=== PATIENT | female | born 1935 ===

== ENCOUNTER 2022-01-07 18:21 | Emergency (ER) | payer SELFPAY ==
[2022-01-07] MEDS ORDERED: Cephalexin 500 MG Cap PO ONE (18:22)
[2022-01-07] MEDS ORDERED: cefTRIAXone 1 GM, Lidocaine 1% 2.1 ML IM ONE ×2 (19:52)
[2022-01-07] MEDS ORDERED: Cephalexin 500 MG Cap ONE (20:22)
== END 2022-01-07 20:28 | disposition home or self-care (01) ==
LOC: DL.ED 18:21
DX: N39.0 Urinary tract infection, site not specified (principal); E78.00 Pure hypercholesterolemia, unspecified; Z79.82 Long term (current) use of aspirin; Z79.899 Other long term (current) drug therapy; Z95.0 Presence of cardiac pacemaker
CPT/HCPCS: 81001; 87086; 87088; 87186; 96372; 99283; A9270-GY; J0696